=== PATIENT | male | born 1965 | race American Indian/Alaskan Native ===

== ENCOUNTER 2019-06-27 10:53 | Emergency (ER) | payer OTHER ==
[2019-06-27 10:59] VITALS: BP 129/84
--- NOTE | 2019-06-27 12:04 | Emergency Department Report ---
- General Chief Complaint: Skin/Abscess/Foreign Body Stated Complaint: LFT FOOT WART/PAIN Time Seen by Provider: 06/27/19 12:00 Source: patient Mode of arrival: Ambulatory Limitations: No Limitations - History of Present Illness Initial Comments: Mr. Perez is a 53-year-old male with a blister on his left foot for several months. Worse at night. No fever no injury. Wears heavy work boots while doing a lot of walking at work. -: Gradual, month(s) (2) Extremity Location: Left: Foot Place: work - Related Data Allergies Allergy/AdvReac Type Severity Reaction Status Date / Time No Known Allergies Allergy Unverified 06/27/19 10:58 ED Review of Systems ROS: Stated complaint: LFT FOOT WART/PAIN Other details as noted in HPI Constitutional: denies: fever, malaise Skin: lesions. denies: rash ED Past Medical Hx - Past Medical History Previous Medical History?: No - Surgical History Past Surgical History?: No - Social History Smoking Status: Current Every Day Smoker Substance Use Type: None ED Physical Exam - General Limitations: No Limitations General appearance: alert, in no apparent distress - Head Head exam: Present: atraumatic, normocephalic - Skin Skin exam: Present: other (2 cm blister mid sole of the sole of the foot) ED Course Vital Signs 06/27/19 10:56 Temperature 98.1 F Pulse Rate 97 H Respiratory 18 Rate Blood Pressure 129/84 O2 Sat by Pulse 96 Oximetry ED Medical Decision Making - Medical Decision Making Foot blister, recommended changes to work shoes. Recommended Epsom salts soaks. Referred to lens polisher for definitive care. Critical care attestation.: If time is entered above; I have spent that time in minutes in the direct care of this critically ill patient, excluding procedure time. ED Disposition Clinical Impression: Blister of foot, left Disposition: DC-01 TO HOME OR SELFCARE Is pt being admited?: No Does the pt Need Aspirin: No Condition: Stable Additional Instructions: Please see instructions provided. Referrals: PAPO MENG DPM [Staff Physician] - 2-3 Days Forms: Work/School Release Form(ED)
== END 2019-06-27 12:12 | disposition home or self-care (01) ==
LOC: ED 10:53
DX: S90.822A Blister (nonthermal), left foot, initial encounter (principal); X58.XXXA Exposure to other specified factors, initial encounter; Y93.89 Activity, other specified; Y92.89 Other specified places as the place of occurrence of the external cause; Y99.8 Other external cause status
CPT/HCPCS: 99282